=== PATIENT | male | born 1940 | race Caucasian/White ===

== ENCOUNTER → 2021-06-09 | Outpatient (CLI) | payer MEDICARE | LOC: WOUNDCARE 11:12 | PROVIDERS: ATTEND Nurse Practitioner | DX: C76.0 Malignant neoplasm of head, face and neck (principal); E11.51 Type 2 diabetes mellitus with diabetic peripheral angiopathy without gangrene; M19.90 Unspecified osteoarthritis, unspecified site; I12.9 Hypertensive chronic kidney disease with stage 1 through stage 4 chronic kidney disease, or unspecified chronic kidney disease; N18.9 Chronic kidney disease, unspecified; I25.10 Atherosclerotic heart disease of native coronary artery without angina pectoris; I48.20 Chronic atrial fibrillation, unspecified; G89.4 Chronic pain syndrome; Z98.890 Other specified postprocedural states; Z96.611 Presence of right artificial shoulder joint; Z96.612 Presence of left artificial shoulder joint; Z85.118 Personal history of other malignant neoplasm of bronchus and lung ==